=== PATIENT | male | born 1950 | race Caucasian/White ===

== ENCOUNTER 2016-07-25 17:29 | Emergency (ER) | payer OTHER ==
--- NOTE | 2016-07-25 18:14 | EDPHY ---
H & P Time Seen by Provider: 07/25/16 18:01 HPI/ROS: CHIEF COMPLAINT: Back pain spasms HISTORY OF PRESENT ILLNESS: This is a 65-year-old male patient presenting to the emergency room sent by Dr. Swift to rule out questionable shingles. Patient states he has been having this left back intermittent muscle pain and spasms for few days, but today around 11 or 12 o'clock while he was at his chiropractor office for adjustment started having increased pain on the left lateral side of his back chiropractor did tell patient look like he may have shingles. Patient states he has had a history of back spasms and kidney stone but patient states this does not feel like kidney stones. Denies any other complaints patient states his last CD4 count was 650 REVIEW OF SYSTEMS: Constitutional: No fever, no chills. Eyes: No discharge. No blurred vision ENT: No sore throat. Cardiovascular: No chest pain, no palpitations. Respiratory: No cough, no shortness of breath. Gastrointestinal: No abdominal pain, no vomiting. Genitourinary: No hematuria. No painful urination Musculoskeletal: Left-sided back pain. Skin: No rashes. Neurological: No headache. Smoking Status: Former smoker Physical Exam: General Appearance: Alert, no distress non ill-appearing, appears uncomfortable Eyes: Pupils equal and round no pallor or injection. ENT, Mouth: Mucous membranes moist. Respiratory: There are no retractions, lungs are clear to auscultation. Cardiovascular: Regular rate and rhythm. Gastrointestinal: Abdomen is soft and nontender, no masses, bowel sounds normal. Neurological: No focal deficits Skin: Warm and dry, left side lateral thoracic tender on palpation macular papular area noted no vesicles Musculoskeletal: Neck is supple nontender. Extremities: symmetrical, full range of motion. Psychiatric: Patient is oriented X 3, acting appropriate Constitutional: Initial Vital Signs Temperature (C) 36.8 C 07/25/16 17:34 Heart Rate 74 07/25/16 17:34 Respiratory Rate 16 07/25/16 17:34 Blood Pressure 106/87 H 07/25/16 17:34 O2 Sat (%) 100 07/25/16 17:34 O2 Delivery Mode Room Air Allergies/Adverse Reactions: cephalexin monohydrate [From Keflex] Allergy (Verified 07/15/15 11:57) Hives ciprofloxacin [From Cipro] Allergy (Verified 07/15/15 11:57) Other-Enter Comments ciprofloxacin HCl [From Cipro] Allergy (Verified 07/15/15 11:57) Other-Enter Comments sulfamethoxazole [From Bactrim] Allergy (Verified 07/15/15 11:57) Hives trimethoprim [From Bactrim] Allergy (Verified 07/15/15 11:57) Hives Home Medications: Medication Instructions Recorded Abacavir Sulfate/Lamivudine 1 each PO DAILY 07/08/15 [Epzicom Tablet] Citalopram Hydrobromide [celeXA 10 10 mg PO DAILY 07/08/15 MG] Herbals/Supplements -Info Only 1 ea PO DAILY 07/08/15 Ibuprofen [Motrin (*)] 400 mg PO DAILY 07/08/15 Multivitamins [Multivitamin (*)] 1 each PO DAILY 07/08/15 Tivicay [Dolutegravir] 50 mg PO DAILY 07/08/15 valACYclovir [Valtrex (*)] 500 mg PO DAILY 07/08/15 LORazepam [Ativan (*)] 0.5 mg PO DAILY PRN #10 tab 08/01/15 oxyCODONE/APAP 5/325 [Percocet 1 - 2 tab PO Q4 PRN #20 tab 08/01/15 5/325 (*)] Acetaminophen [Tylenol 325mg (*)] 650 mg PO Q6 PRN #30 tab 08/06/15 Calcitriol [Calcitriol (*)] 1 mcg PO DAILY #20 cap 08/06/15 Calcium Carbonate [Tums 500MG (*)] 1,000 mg PO TID #60 tab.chew 08/06/15 Docusate Sodium [Colace 100 MG (*)] 100 mg PO BID #30 cap 08/06/15 Zolpidem Tartrate [Ambien 5MG (*)] 10 mg PO HS PRN #10 tab 08/06/15 valACYclovir [Valtrex (*)] 1,000 mg PO TID #42 tab 07/25/16 Medical Decision Making ED Course/Re-evaluation: Discussed ED plan of care: UA, pain medicine 1899: The patient's primary care physician Dr. Swift was at bedside, he also rear stated it could be a 50 50 of whether it is going to be a blossoming shingles are not, patient will be started on Valtrex 1 g 3 times a day for 7. 1929: Discussed results with patient, and also discussion with Dr. Swift patient agree with plan. Discharge home---> stable, discussed discharge instructions. Differential Diagnosis: Other differential diagnosis considered but not limited to shingles, muscle spasm, and kidney stones - Data Points Laboratory Results: 07/25/16 18:25 Urine Color YELLOW Urine Appearance CLEAR Urine pH 5.0 (5.0-7.5) Ur Specific [place] 1.014 (1.002-1.030) Urine Protein NEGATIVE (NEGATIVE) Urine Ketones NEGATIVE (NEGATIVE) Urine Blood NEGATIVE (NEGATIVE) Urine Nitrate NEGATIVE (NEGATIVE) Urine Bilirubin NEGATIVE (NEGATIVE) Urine Urobilinogen NEGATIVE EU EU (0.2-1.0) Ur Leukocyte Esterase NEGATIVE (NEGATIVE) Urine Glucose NEGATIVE (NEGATIVE) Medications Given: Discontinued Medications Oxycodone/Acetaminophen (Percocet 5/325) 2 tab PO EDNOW ONE Stop: 07/25/16 18:23 Last Admin: 07/25/16 18:26 Dose: Not Given Oxycodone/Acetaminophen (Percocet 5/325mg Prepack#4) 1 btl TAKEHOME EDNOW ONE Stop: 07/25/16 19:38 Last Admin: 07/25/16 19:43 Dose: 1 btl Departure - Departure Disposition: Home, Routine, Self-Care Clinical Impression: Muscle spasm, Rash Condition: Good Instructions: Oxycodone/Acetaminophen (By mouth), Acute Rash (ED), Muscle Spasm (ED) Additional Instructions: 1. You can start the increased dose of Valtrex today or you can hold off and 24 -48 hours to see if rashes worsened with blisters 2. Dr. Swift also stated that he will see you in his office this week 3. Any worsening symptoms return to the ER Referrals: Eliecer Swift MD [Primary Care Provider] - As per Instructions Prescriptions: valACYclovir [Valtrex (*)] 1,000 mg PO TID #42 tab
[2016-07-25] MEDS ORDERED: OXYCODONE/APAP 5/325 TAB PO ONE (18:22)
[2016-07-25 18:35] LABS: COLOR YELLOW; LEUKOCYTE ESTERASE,URINE NEGATIVE (NEGATIVE); NITRITE,URINE NEGATIVE (NEGATIVE)
--- NOTE | 2016-07-25 19:18 | CPEKG ---
Heart Rate: 63 RR Interval: 952 P-R Interval: 172 QRSD Interval: 92 QT Interval: 420 QTC Interval: 430 P [place]: 14 QRS [place]: -68 T Wave [place]: 34 EKG Severity - ABNORMAL ECG - EKG Impression: SINUS RHYTHM EKG Impression: LEFT ANTERIOR FASCICULAR BLOCK Electronically Signed By: Wale Dhaliwal 25-Jul-2016 19:41:47
[2016-07-25] MEDS ORDERED: OXYCODONE/APAP 5/325MG PREPACK#4 BTL TAKEHOME ONE (19:37)
[2016-07-25 19:49] VITALS: BP 142/95; PULSE 62; RESP 18; TEMP 97.3; O2SAT 98
== END 2016-07-25 19:48 | disposition home or self-care (01) ==
DX: M62.838 Other muscle spasm (principal); R21 Rash and other nonspecific skin eruption; Z87.891 Personal history of nicotine dependence

== ENCOUNTER → 2018-03-09 | Outpatient (CLI) | payer OTHER | LOC: FIMAGING 09:59 | PROVIDERS: ATTEND Family Medicine | DX: R22.1 Localized swelling, mass and lump, neck (principal); Z21 Asymptomatic human immunodeficiency virus [HIV] infection status ==